=== PATIENT | female | born 1985 | race Caucasian/White ===

== ENCOUNTER 2017-01-15 21:25 | Inpatient (IN) | payer OTHER ==
[~2017-01-15] VITALS: Ht 175.3 cm; Wt 179.5 kg
[~2017-01-15 21:25] MED LIST: FLEXERIL10 MG PO; FLONASE16 G1 BOTH NARES; IMITREX100 MG PO; MACROBID100 MG PO; MOTRIN400 MG PO; NOHOMEMEDS; NORCO 5/3251 TABLET PO; OMEPRAZOLE20 MG PO; PEPCID AC10 MG PO; PROMETHAZINE HC25 M1 PO; SPRINTEC1 EACH PO; TOPAMAX100 MG PO; TOPAMAX50 MG PO; TRAMADOL HCL50 MG PO; ULTRAM50 MG PO; ZOLOFT100 MG PO; ZOLOFT25 MG PO; ZYVOX600 MG PO
[2017-01-15 22:20] LABS: EOSINOPHIL (%) 0.1 % (0-5); HEMATOCRIT 40.4 % (36.0-46.0); IMMATURE GRANULOCYTE (%) 0.4 % (0.0-0.7); INSTRUMENT ABS NEUTROPHIL CT 8.4 K/uL; LYMPHOCYTE COUNT 1.4 K/uL (1.0-2.8); MCH 24.7 PG (29.0-34.0); MCHC 31.4 G/DL (30.0-36.0); MCV 78.4 FL (83-99); MEAN PLAT.VOLUME 9.7 uM^3 (9.5-12.4); MONOCYTE COUNT 1.1 K/uL (0-0.8); NEUTROPHIL (%) 76.8 % (45-76); NEUTROPHIL COUNT 8.4 K/uL (1.8-6.4); PLATELET COUNT 249 K/uL (156-360); RBC DIS.WIDTH-CV 13.8 % (11.8-14.6); RBC DIS.WIDTH-SD 39.1 % (39-53); RED BLOOD COUNT 5.15 M/uL (3.80-5.20); WHITE BLOOD COUNT 10.9 K/uL (4.1-10.2)
[2017-01-15 22:32] LABS: CHLORIDE 104 mEq/L (99-109); POTASSIUM 3.7 mEq/L (3.7-5.4); SODIUM 137 mEq/L (136-147)
[2017-01-15 22:34] LABS: GLUCOSE 119 mg/dL (70-99)
[2017-01-15 22:35] LABS: ANION GAP 10 MEQ/L (2-14)
[2017-01-15 22:36] LABS: TOTAL BILIRUBIN 1.1 mg/dL (0.0-1.0)
[2017-01-15 22:38] LABS: ALKALINE PHOSPHATASE 65 IU/L (3-129); GFR ESTIMATE (CALCULATED) > 59 mL/min/
[2017-01-15 22:39] LABS: UREA NITROGEN (BUN) 11 mg/dL (9-23)
[2017-01-15 22:50] LABS: QUANTITATIVE HCG < 4.0 MIU/ML
[2017-01-15] MEDS ORDERED: AMBIEN5 MG PO (23:44)
[2017-01-15] MEDS ORDERED: CLARITIN,ALAVAR10 MG PO (23:44)
[2017-01-15] MEDS ORDERED: PROMETHAZINE-D120 ML PO (23:44)
[2017-01-15] MEDS ORDERED: TYLENOL EXTRA500 MG PO (23:44)
[2017-01-15] MEDS ORDERED: VENTOLIN HFA18 GM IH (23:44)
[2017-01-15] MEDS ORDERED: DITROPAN XL10 MG PO (23:45)
[2017-01-16] VITALS (7 sets, daily range): BP systolic 91–135; BP diastolic 50–93
[2017-01-16 01:48] LABS: COLOR AMBER ((YELLOW)); SPECIFIC GRAVITY 1.025 (1.000-1.030)
[2017-01-16 01:49] LABS: ADD MIUA? YES; BILIRUBIN NEGATIVE; BLOOD LARGE; GLUCOSE (STRIP) NEGATIVE; KETONES TRACE; LEUKOCYTES MODERATE; NITRITE POSITIVE; PROTEIN (STRIP) 100
[2017-01-16 02:17] LABS: BACTERIA 2+ /HPF; CASTS PRESENT /LPF; CRYSTALS NONE SEEN; EPITHELIAL CELLS 2+ /HPF; MUCUS 1+ /LPF; RED BLOOD CELLS 30-40 /HPF (0-5); UCUL ADDED? YES; WHITE BLOOD CELLS TNTC /HPF (0-5)
[2017-01-16 02:18] LABS: COARSE GRANULAR CASTS RARE /LPF; HYALINE CASTS 0-5 /LPF
[2017-01-16] MEDS ORDERED: PERCOCET 5/31 TABLET PO (10:49)
[2017-01-16] MEDS ORDERED: PHENAZOPYRIDIN100 MG PO (12:41)
[2017-01-17 04:03] VITALS: BP 125/66
[2017-01-17 06:45] LABS: ANION GAP 6 MEQ/L (2-14); CHLORIDE 106 MEQ/L (99-109); GFR ESTIMATE (CALCULATED) > 59 mL/min/; GLUCOSE 99 mg/dL (70-99); POTASSIUM 3.8 MEQ/L (3.7-5.4); SAMPLE HEMOLYSIS CHECK 0; SAMPLE ICTERIC CHECK 0; SAMPLE LIPEMIA CHECK 0; SODIUM 139 MEQ/L (136-147); UREA NITROGEN (BUN) 14 mg/dL (9-23)
[2017-01-17 06:57] LABS: EOSINOPHIL (%) 1.7 % (0-5); EOSINOPHIL COUNT 0.1 K/uL (0-0.3); HEMATOCRIT 33.1 % (36.0-46.0); IMMATURE GRANULOCYTE (%) 0.6 % (0.0-0.7); INSTRUMENT ABS NEUTROPHIL CT 2.4 K/uL; LYMPHOCYTE COUNT 0.6 K/uL (1.0-2.8); MCH 25.6 PG (29.0-34.0); MCHC 31.7 G/DL (30.0-36.0); MCV 80.7 FL (83-99); MONOCYTE (%) 13.4 % (3-12); MONOCYTE COUNT 0.5 K/uL (0-0.8); NEUTROPHIL (%) 66.4 % (45-76); NEUTROPHIL COUNT 2.4 K/uL (1.8-6.4); RBC DIS.WIDTH-CV 13.9 % (11.8-14.6); RBC DIS.WIDTH-SD 41.1 % (39-53); WHITE BLOOD COUNT 3.6 K/uL (4.1-10.2)
[2017-01-17 07:15] VITALS: BP 121/61
[2017-01-17 07:33] LABS: MEAN PLAT.VOLUME 10.2 uM^3 (9.5-12.4); PLAT.SUFFICIENCY ADEQUATE
[2017-01-17 07:49] LABS: PLATELET COUNT 167 K/uL (156-360)
[2017-01-17 15:30] VITALS: BP 138/86
== END 2017-01-17 17:53 | disposition home or self-care (01) | DRG 690 ==
LOC: EME 21:25 → EDOF 01-16 00:55 → ENRESERV 01-16 00:58 → 5WEST 01-16 01:50 → ENRESERV 01-16 14:14 → 2EAST 01-16 17:25
PROVIDERS: Emergency Medicine; Hospitalist
DX: N10 Acute pyelonephritis (principal); R78.81 Bacteremia; Z68.43 Body mass index [BMI] 50.0-59.9, adult; E66.01 Morbid (severe) obesity due to excess calories; K76.0 Fatty (change of) liver, not elsewhere classified; R16.0 Hepatomegaly, not elsewhere classified; B96.20 Unspecified Escherichia coli [E. coli] as the cause of diseases classified elsewhere; N20.0 Calculus of kidney; Z87.440 Personal history of urinary (tract) infections; S39.012A Strain of muscle, fascia and tendon of lower back, initial encounter; Z16.24 Resistance to multiple antibiotics; Z79.899 Other long term (current) drug therapy; Z87.442 Personal history of urinary calculi; N39.41 Urge incontinence; R00.0 Tachycardia, unspecified; R63.0 Anorexia; Q63.8 Other specified congenital malformations of kidney
CPT/HCPCS: 74176; 80048; 80053; 81003; 83605; 84702; 85025; 87040; 87077; 87086; 87186; 87801; 94760; 99202; 99281; 99285; J0696; J1650; J1885; J3010; J7030; J7050; Q0169

== ENCOUNTER 2018-02-11 13:18 | Emergency (ER) | payer OTHER ==
[~2018-02-11] VITALS: Ht 170.2 cm; Wt 189.8 kg
[~2018-02-11 13:18] MED LIST changes: +AMBIEN5 MG PO; +CLARITIN,ALAVAR10 MG PO; +DITROPAN XL10 MG PO; +LISINOPRIL5 MG PO; +MULTIPLE VITAM1 EACH PO; +NITROFURANTOIN50 MG PO; -OMEPRAZOLE20 MG PO; +OMEPRAZOLE40 M1 PO; +PERCOCET 5/31 TABLET PO; +PHENAZOPYRIDIN100 MG PO; +PROMETHAZINE-D120 ML PO; +SYMBICORT60 INHALA1 IH; +TYLENOL EXTRA500 MG PO; +TYLENOL WITH C1 EACH PO; +VENTOLIN HFA18 GM IH
[2018-02-11 14:38] LABS: ALBUMIN 4.3 g/dL (3.2-4.8); BASOPHIL (%) 0.4 % (0-1); CHLORIDE 106 mEq/L (99-109); EOSINOPHIL (%) 1.1 % (0-5); EOSINOPHIL COUNT 0.1 K/uL (0-0.3); HEMATOCRIT 37.9 % (36.0-46.0); HEMOGLOBIN 11.8 G/DL (11.9-15.5); IMMATURE GRANULOCYTE (%) 0.5 % (0.0-0.7); LYMPHOCYTE (%) 17.6 % (15-42); LYMPHOCYTE COUNT 1.4 K/uL (1.0-2.8); MCH 23.2 PG (29.0-34.0); MCHC 31.1 G/DL (30.0-36.0); MCV 74.6 FL (83-99); MONOCYTE (%) 6.1 % (3-12); MONOCYTE COUNT 0.5 K/uL (0-0.8); NEUTROPHIL (%) 74.3 % (45-76); NEUTROPHIL COUNT 6.1 K/uL (1.8-6.4); PLATELET COUNT 363 K/uL (156-360); POTASSIUM 4.5 mEq/L (3.7-5.4); RBC DIS.WIDTH-CV 14.6 % (11.8-14.6); RBC DIS.WIDTH-SD 39.3 % (39-53); RED BLOOD COUNT 5.08 M/uL (3.80-5.20); SODIUM 140 mEq/L (136-147); WHITE BLOOD COUNT 8.2 K/uL (4.1-10.2)
[2018-02-11 14:41] LABS: GLUCOSE 110 mg/dL (70-99); TOTAL PROTEIN 7.7 g/dL (6.4-8.3)
[2018-02-11 14:43] LABS: TOTAL BILIRUBIN 0.4 mg/dL (0.0-1.0)
[2018-02-11 14:44] LABS: ALKALINE PHOSPHATASE 64 IU/L (3-129); CREATININE 0.9 mg/dL (0.6-1.3); GFR ESTIMATE (CALCULATED) > 59 mL/min/
[2018-02-11 14:45] LABS: UREA NITROGEN (BUN) 11 mg/dL (9-23)
[2018-02-11 14:46] LABS: AST (GOT) 41 IU/L (2-34); DIRECT BILIRUBIN 0.2 mg/dL (0.0-0.3)
[2018-02-11 14:47] LABS: ALT (GPT) 43 IU/L (3-49)
[2018-02-11 14:48] LABS: LIPASE 22 U/L (1.0-51.0)
[2018-02-11 14:53] LABS: QUANTITATIVE HCG < 4.0 MIU/ML
[2018-02-11 16:30] LABS: APPEARANCE CLEAR ((CLEAR)); BILIRUBIN NEGATIVE; BLOOD MODERATE; COLOR YELLOW ((YELLOW)); GLUCOSE (STRIP) NEGATIVE; KETONES NEGATIVE; LEUKOCYTES TRACE; NITRITE NEGATIVE; PROTEIN (STRIP) 30; SPECIFIC GRAVITY 1.038 (1.000-1.030); UROBILINOGEN 0.2 MG/DL (0.2-1.0)
[2018-02-11 16:35] LABS: BACTERIA RARE /HPF; EPITHELIAL CELLS 1+ /HPF; MUCUS TRACE /LPF; RED BLOOD CELLS TNTC /HPF (0-5); UCUL ADDED? YES
[2018-02-11] MEDS ORDERED: PERCOCET 5/31 TABLET PO (17:02)
[2018-02-11 17:56] VITALS: BP 139/83
== END 2018-02-11 18:37 | disposition home or self-care (01) ==
LOC: EME 13:18
PROVIDERS: Emergency Medicine
DX: N20.0 Calculus of kidney (principal); G43.909 Migraine, unspecified, not intractable, without status migrainosus
CPT/HCPCS: 74177; 80048; 80076; 81003; 83690; 84702; 85025; 87086; 99281; 99285; J2270; J2405; J7040